=== PATIENT | female | born 1980 | race Caucasian/White ===

== ENCOUNTER 2024-03-23 07:22 | Emergency (ER) | payer OTHER ==
[~2024-03-23] VITALS: Ht 160 cm; Wt 85.0 kg
[2024-03-23 07:56] VITALS: PULSE 87; RESP 16; O2SAT 95
[2024-03-23 08:00] VITALS: TEMP 97.8
[2024-03-23] MEDS: SODIUM CHLORIDE 0.9% 1,000 ML IV ONE (08:01)
[2024-03-23 08:27] LABS: Basophils # (auto) 0.1 10 ^3/uL (0-0.2); Eosinophils # (auto) 0.2 10 ^3/uL (0-0.8); Eosinophils % (auto) 3.6 % (0.0-7.0); Hematocrit 39.5 % (36.0-46.0); Hemoglobin 13.2 g/dL (12.2-16.2); Lymphocytes # (auto) 1.6 10 ^3/uL (0.4-5.4); Lymphocytes % (auto) 25.3 % (10.0-50.0); Mean Corpuscular Hemoglobin 28.1 pg (28.0-32.0); Mean Corpuscular Hgb Conc. 33.3 g/dL (32.0-36.0); Mean Corpuscular Volume 84.3 fL (80.0-100.0); Monocytes # (auto) 0.4 10 ^3/uL (0-1.3); Monocytes % (auto) 6.1 % (0.0-12.0); Neutrophils # (auto) 4.1 10 ^3/uL (1.6-8.6); Nucleated Red Blood Cells % 0.1 %; Platelet Count (auto) 359 10^3/uL (140-450); Red Blood Cells 4.69 10^6/uL (4.0-5.20); Red Cell Distribution Width 13.6 % (11.8-14.3); White Blood Cell 6.5 10^3/uL (4.4-10.8)
[2024-03-23 08:42] LABS: Partial Thromboplastin Time 28.2 SEC (24.5-34.5); Prothrombin Time 10.6 sec (9.3-11.8)
[2024-03-23 08:45] LABS: Alanine Aminotransferase 15 U/L (7-40); Albumin 4.7 g/dL (3.2-4.8); Alkaline Phosphatase 73 U/L (46-116); Anion Gap 8 (5-15); Aspartate Aminotransferase 9 U/L (13-40); BUN/Creatinine Ratio 14.6 (10.0-20.0); Blood Urea Nitrogen 12 mg/dL (9-23); Calcium 9.4 mg/dL (8.7-10.4); Carbon Dioxide 25 mmol/L (20-30); Chloride 107 mmol/L (98-107); Glucose 101 mg/dL (74-106); Potassium 3.6 mmol/L (3.5-5.1); Sodium 140 mmol/L (136-145)
[2024-03-23 08:46] LABS: Bilirubin, Total 0.4 mg/dL (0.2-1.0)
[2024-03-23 11:20] VITALS: BP 108/63; PULSE 73; RESP 18; O2SAT 99
== END 2024-03-23 11:25 | disposition home or self-care (01) ==
LOC: ER 07:22
DX: R00.2 Palpitations (principal); R06.02 Shortness of breath; R07.89 Other chest pain; E78.00 Pure hypercholesterolemia, unspecified
CPT/HCPCS: 36415; 71045; 80053; 83735; 83880; 84100; 84443; 84484; 85025; 85379; 85610; 85730; 93005; 96360; 99285; J7030